=== PATIENT | female | born 1995 | race Caucasian/White ===

== ENCOUNTER 2021-11-02 10:16 | Emergency (ER) | payer OTHER ==
[~2021-11-02] VITALS: Ht 162.6 cm; Wt 54.4 kg
[~2021-11-02 10:16] MED LIST: XANAX0.5 MG PO; YAZ 28 TABLET1 EACH PO
--- OUTSIDE RECORDS SUMMARY | 2021-11-02 10:18 | XMS ---
PreManage Notification: ELSIE JASSO Security Dispatcher Clerk Events No recent Security Events currently on file [facility] There are no care providers on record at this time. Tino has no Care Guidelines for this patient. Marifer VISIT COUNT (12 MO.) 1 DAVE Heller TOTAL 1 NOTE: Visits indicate total known visits. ED/C VISIT TRACKING (12 MO.) 11/02/2021 10:16 [facility] TYPE: Emergency COMPLAINT: - CHEST PAINS INPATIENT VISIT TRACKING (12 MO.) No inpatient visits to display in this time frame [email or web address]
== END 2021-11-02 11:13 | disposition home or self-care (01) ==
LOC: ED 10:16
DX: R10.13 Epigastric pain (principal)
CPT/HCPCS: 99283